=== PATIENT | female | born 2005 | race Hispanic/Latino ===

== ENCOUNTER 2024-06-12 17:54 | Emergency (ER) | payer OTHER, SELFPAY ==
[2024-06-12] MEDS ORDERED: Ketorolac Tromethamine 30 MG (1 mL) VIAL ONE (19:11)
== END 2024-06-12 20:15 | disposition home or self-care (01) ==
LOC: ERS 17:54
DX: G89.18 Other acute postprocedural pain (principal); M79.645 Pain in left finger(s)
CPT/HCPCS: 96372; 99283; J1885

== ENCOUNTER 2024-12-10 17:01 | Emergency (ER) | payer SELFPAY ==
[2024-12-10] MEDS ORDERED: Lidocaine 1% w/Epinephrine 1:100K 20 ML VIAL ONE (17:24)
[2024-12-10] MEDS ORDERED: Lidocaine 1% PF 5 ML VIAL ONE (17:24)
[2024-12-10] MEDS ORDERED: Boostrix 0.5 ML (Tdap) VIAL (>/=7 yrs of age) ONE (17:24)
[2024-12-10] MEDS ORDERED: Bacitracin 1 PK ONE (18:01)
== END 2024-12-10 18:47 | disposition home or self-care (01) ==
LOC: ERS 17:01
DX: S01.81XA Laceration without foreign body of other part of head, initial encounter (principal); Z23 Encounter for immunization; W01.0XXA Fall on same level from slipping, tripping and stumbling without subsequent striking against object, initial encounter; Y92.838 Other recreation area as the place of occurrence of the external cause
CPT/HCPCS: 12011; 90471; 90715